=== PATIENT | female | born 1995 | race Caucasian/White ===

== ENCOUNTER 2019-10-30 07:45 | Day surgery (SDC) | payer OTHER ==
[~2019-10-30] VITALS: Ht 162.6 cm; Wt 60.6 kg
== END 2019-10-30 10:04 | disposition home or self-care (01) ==
LOC: ORSCSDS 07:45
PROVIDERS: Internal Medicine Gastroenterology
PROC: 0DB98ZX Excision of Duodenum, Via Natural or Artificial Opening Endoscopic, Diagnostic (ICD-10-PCS; principal; 2019-10-30 09:00)
PROC: 0DB78ZX Excision of Stomach, Pylorus, Via Natural or Artificial Opening Endoscopic, Diagnostic (ICD-10-PCS; principal; 2019-10-30 09:00)
PROC: 0DBE8ZX Excision of Large Intestine, Via Natural or Artificial Opening Endoscopic, Diagnostic (ICD-10-PCS; principal; 2019-10-30 09:00)
PROC: 0DB58ZX Excision of Esophagus, Via Natural or Artificial Opening Endoscopic, Diagnostic (ICD-10-PCS; principal; 2019-10-30 09:00)
PROC: 0D757ZZ Dilation of Esophagus, Via Natural or Artificial Opening (ICD-10-PCS; principal; 2019-10-30 09:00)
DX: R19.4 Change in bowel habit (principal); R14.0 Abdominal distension (gaseous); R11.0 Nausea; R10.13 Epigastric pain; R19.8 Other specified symptoms and signs involving the digestive system and abdomen
CPT/HCPCS: 88305; 88342; J2250; J2704; J7120